=== PATIENT | male | born 2000 | race Two or more races ===

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

== ENCOUNTER 2019-09-12 20:24 | Emergency (ER) | payer SELFPAY ==
[~2019-09-12] VITALS: Ht 162.6 cm; Wt 59.0 kg
[2019-09-12 22:35] VITALS: BP 127/86
[2019-09-12] MEDS ORDERED: ACETAMINOPHEN 325 MG TAB PO ONE (22:45)
== END 2019-09-12 22:52 | disposition home or self-care (01) ==
LOC: ER 20:26
DX: K29.70 Gastritis, unspecified, without bleeding (principal)
CPT/HCPCS: 74176